=== PATIENT | male | born 1975 | race Caucasian/White ===

== ENCOUNTER 2020-06-04 10:54 | Emergency (ER) | payer BC, SELFPAY ==
[2020-06-04 10:55] VITALS: BP 158/111; PULSE 96; RESP 18; TEMP 36.6; O2SAT 98; BMI 30.5
[2020-06-04] MEDS: oxyCODONE 5 MG Tablet PO (11:29)
--- NOTE | 2020-06-04 11:30 | RAD_ITS ---
STUDY: X-RAY - RIGHT ELBOW REASON FOR EXAM: Male, 44 years old. FALL, RIGHT ELBOW PAIN. TECHNIQUE: 3 view(s) of the elbow. COMPARISON: None. FINDINGS: Nondisplaced avulsion fracture of the radial head. Normal radiocapitellar and ulnotrochlear articulations. Joint effusion. RAD/Elbow min 3 Views IMPRESSION: Joint effusion. Nondisplaced avulsion fracture of the radial head. Electronically Signed: Grover Zhang MD at 12:08 EST , Service support ,
--- NOTE | 2020-06-04 12:05 | ED.VIS.UPPEX ---
History of Present Illness Chief Complaint: Upper Extremity Injury Narrative: Patient presenting for evaluation secondary to a right elbow injury. Patient states that yesterday he suffered a slip and fall on the ice onto his right elbow. He denies hitting his head or loss of consciousness. He states that he has a moderate to severe amount of pain in his right elbow. He reports that he heard a crack when he fell. He initially had tingling in his fingers that is since resolved. He is not anticoagulated. Review of systems otherwise negative. Past Medical History - Allergies and Home Meds Allergies/Adverse Reactions: Allergies No Known Allergies Allergy (Verified 06/04/20 10:56) Primary Care Physician: Care Physician,No Primary [Primary Care Provider] - Prior records reviewed: Yes Past Medical History: None Lives: Spouse/ Significant Other Smoking Status: Never smoker Drugs: None Review of Systems General: Denies: Fever Cardiovascular: Denies: Chest pain Respiratory: Denies: Dyspnea, Cough Gastrointestinal: Denies: Nausea, Vomiting Musculoskeletal: Reports: Extremity Pain Neurological: Reports: Parasthesia Psych: Denies: Depression Hematologic: Denies: Easy bruising, Easy bleeding Physical Exam Vital Signs/Narrative: Vital Signs Temp Pulse Resp BP Pulse Ox 06/04/20 10:55 97.8 F 96 18 158/111 H 98 Inital Vital Signs reviewed: Yes Right Elbow: - - Joint effusion noted of the right elbow. Limited range of motion secondary to pain. Patient complains of pain with minimal pronation supination flexion and extension. No evidence of injury or deformity of the upper arm forearm wrist or hand. Right Wrist: - - Normal neurologic exam over the radial, median, and ulnar nerve distributions of the forearm wrist and hand. Normal pulses and sensation. General: Well nourished, Well developed Head: Normocephalic, Atraumatic Eyes: Perrl, EOMI ENT: No Trauma Neck: Full ROM Cardiovascular: Regular rate, Regular rhythm Respiratory: No distress Skin: Normal color, No rash Neurological: Alert, Oriented x3, Cranial nerves II-XII grossly intact, Normal Strength, Normal Sensation Diagnostic/Tx/Re-eval 3 view of the right elbow demonstrates a displaced radial head fracture with a joint effusion by my personal interpretation - Medical Decision Making Patient presented secondary to an elbow injury. 3 view x-ray by my personal review shows a elbow fracture. Patient's arm was placed in a long-arm splint that was fabricated at the bedside by the ED physician as noted in the procedure note. Patient will be discharged with outpatient follow-up with orthopedics and will be discharged with a course of Percocet for pain control. Procedures Procedure(s): Fabricated long-arm fiberglass splint was performed by the ED physician. Cotton stockinette was placed on the patient's arm. Cotton padding was then wrapped. 4 inch fiberglass was placed from the hand up to the upper arm in a ulnar gutter long-arm pattern. This was wrapped with an Elieser wrap. Patient tolerated this well. Good capillary refill following splint placement. ED Disposition - Plan for ED Patient: Disposition: Home or Assisted Living Diagnosis: Radial head fracture, closed Instructions: ED Radial Head Fracture Prescriptions: Oxycodone HCl/Acetaminophen [Percocet 5/325] 1 tab PO Q6H PRN PRN 3 Days #12 tab PRN Reason: Pain Prescription Printed Referrals: Mason Martins MD [STAFF PHYSICIAN] - 3-5 Days
[2020-06-04 12:26] VITALS: BP 160/98; PULSE 88; RESP 16; O2SAT 99
== END 2020-06-04 12:27 | disposition home or self-care (01) ==
LOC: ED 12:13
PROVIDERS: Emergency Provider Emergency Medicine; PCP Family Medicine
DX: S52.124A Nondisplaced fracture of head of right radius, initial encounter for closed fracture (principal); W00.0XXA Fall on same level due to ice and snow, initial encounter; M25.421 Effusion, right elbow
CPT/HCPCS: 29105; 29405; 73080; 99283